=== PATIENT | male | born 1965 | race Caucasian/White ===

== ENCOUNTER 2021-05-21 11:25 | Day surgery (SDC) | payer BC ==
[2021-05-20 12:54] VITALS: BMI 22.9
[2021-05-21] MEDS ORDERED: Acetaminophen 500 MG TAB ONE (11:40)
[2021-05-21] MEDS ORDERED: Ketorolac Tromethamine 30 MG/ML VIAL ONE (11:40)
[2021-05-21] MEDS ORDERED: Midazolam HCl 2 mg/2 ml Vial ONE (13:35)
[2021-05-21] MEDS ORDERED: Fentanyl 100 MCG/2 ML VIAL ONE (13:35)
[2021-05-21] MEDS ORDERED: Bupivacaine 0.25% HCL 30 ML VIAL ONE (13:39)
[2021-05-21] MEDS ORDERED: Lidocaine 2% Jelly 5 ML TUBE ONE (13:39)
[2021-05-21] MEDS ORDERED: EPINEPHrine 1 MG/ML AMP ONE (13:39)
[2021-05-21] MEDS ORDERED: Glycopyrrolate 0.2 MG/ML 5 ML SYRINGE ONE (14:00)
[2021-05-21] MEDS ORDERED: Dexamethasone 20 MG/5 ML VIAL ONE (14:00)
[2021-05-21] MEDS ORDERED: PROPOFOL 200 MG/20 ML VIAL ONE (14:00)
[2021-05-21] MEDS ORDERED: Rocuronium Bromide 10 MG/ML (10ML VIAL) ONE (14:00)
[2021-05-21] MEDS ORDERED: Ondansetron PF 4 MG/2 ML Vial ONE (14:00)
[2021-05-21] MEDS ORDERED: Lidocaine 1% PF 5 ML VIAL ONE (14:00)
== END 2021-05-21 17:08 | disposition home or self-care (01) ==
LOC: SDC 11:25
PROVIDERS: ATTEND Specialist
PROC: 06LY0ZC Occlusion of Hemorrhoidal Plexus, Open Approach (ICD-10-PCS; principal; 2021-05-21)
DX: K64.8 Other hemorrhoids (principal); K62.4 Stenosis of anus and rectum; E78.5 Hyperlipidemia, unspecified; F17.200 Nicotine dependence, unspecified, uncomplicated; Z98.890 Other specified postprocedural states
CPT/HCPCS: J0171; J0690; J1100; J1885; J2250; J2405; J2704; J3010; S0020

== ENCOUNTER 2023-08-24 09:50 | Outpatient (CLI) | payer BC ==
[2023-08-24 11:11] LABS: #Eosinphils 0.1 10x3/uL (0.0-0.5); #Monocytes 0.3 10x3/uL (0.0-1.1); #Neutrophils 2.3 10x3/uL (1.5-8.4); %Basophils 0.5 % (0.0-2.0); %Eosinophils 1.5 % (0.0-6.0); %Lymphocytes 30.6 % (18.0-47.0); %Monocytes 7.7 % (0.0-10.0); %Neutrophils 59.4 % (40.0-75.0); Hematocrit 44.6 % (38.8-50.0); Mean Corpuscular HGB CONC 31.4 g/dL (32.0-36.0); Mean Corpuscular Hemoglobin 26.6 pg (27.0-33.0); Mean Corpuscular Volume 84.8 fl (81.2-95.1); Platelet Count 188 10x3/uL (150-450); RBC Distribution Width 12.8 % (11.5-14.5); Red Blood Cell (RBC) Count 5.26 10x6/uL (4.32-5.72); White Blood Cell (WBC) Count 3.9 10x3/uL (3.5-10.5)
[2023-08-24 11:23] LABS: PTT 28.5 sec (22.0-33.0); Prothrombin Time 10.3 sec (9.5-12.1)
[2023-08-24 11:33] LABS: ALT (SGPT) 10 U/L (8-55); AST (SGOT) 24 U/L (5-34); Albumin 4.2 g/dL (3.5-5.0); Alkaline Phosphatase 81 U/L (40-110); Anion Gap 12 mmol/L (10-20); BUN (Urea Nitrogen) 10 mg/dL (8.4-25.7); Bilirubin, Direct 0.1 mg/dL (0.1-0.3); Bilirubin, Total 0.3 mg/dL (0.2-1.2); Calc. Creatinine Clearance 0 mL/min (70-130); Calcium 9.2 mg/dL (7.8-10.44); Carbon Dioxide 28 mmol/L (22-29); Chloride 106 mmol/L (98-107); Estimated GFR 101; Globulin 2.5 g/dL (2.4-3.5); Glucose 93 mg/dL (70-105); Potassium 4.6 mmol/L (3.5-5.1); Protein, Total 6.7 g/dL (6.0-8.3); Sodium 141 mmol/L (136-145)
== END 2023-08-24 09:51 | disposition home or self-care (01) ==
LOC: LABBT 09:50
PROVIDERS: ATTEND Internal Medicine Cardiovascular Disease
DX: Z01.818 Encounter for other preprocedural examination (principal)
CPT/HCPCS: 80053; 80076; 85025; 85610; 85730; 93005; 93010

== ENCOUNTER → 2023-08-26 | Day surgery (SDC) | payer BC ==
[2023-08-24 10:31] VITALS: BMI 21.5
[~2023-08-26] MED LIST: Heparin 10,000 UNITS/ 10 ML VIAL ONE; Lidocaine 1% (PF) 30 ML VIAL ONE; Midazolam HCl 2 mg/2 ml Vial ONE; Nitroglycerin 50 MG/250 ML BOT 250 ML ONE; Verapamil 5 MG/2 ML VIAL ONE; fentaNYL 50 mcg/mL 1 mL Vial ONE
[2023-08-26 07:07] LABS: Cardiac Risk 5.7 (Less than 4.5)
== END ==
LOC: CCL 06:11
PROVIDERS: ATTEND Internal Medicine Cardiovascular Disease
PROC: 4A023N7 Measurement of Cardiac Sampling and Pressure, Left Heart, Percutaneous Approach (ICD-10-PCS; principal; 2023-08-26)
DX: R07.9 Chest pain, unspecified (principal); R01.1 Cardiac murmur, unspecified; I35.0 Nonrheumatic aortic (valve) stenosis
CPT/HCPCS: 36415; 80061; 93454; 99152; C1769; J1644; J2001; J2250; J3010

== ENCOUNTER 2023-09-30 09:15 | Outpatient (CLI) | payer BC | END 2023-09-30 09:16 | disposition home or self-care (01) | LOC: LABBT 09:15 | PROVIDERS: ATTEND Thoracic Surgery (Cardiothoracic Vascular Surgery) | DX: Z01.818 Encounter for other preprocedural examination (principal); I35.0 Nonrheumatic aortic (valve) stenosis | CPT/HCPCS: 71046; 93005; 93010 ==

== ENCOUNTER 2023-09-30 09:30 | Inpatient (IN) | payer BC ==
[2023-09-30 10:48] LABS: Hematocrit 43.5 % (38.8-50.0); Hemoglobin 14.4 g/dL (13.5-17.5); Mean Corpuscular HGB CONC 33.1 g/dL (32.0-36.0); Mean Corpuscular Hemoglobin 27.5 pg (27.0-33.0); Mean Platelet Volume 10.3 fl (7.4-10.4); Platelet Count 213 10x3/uL (150-450); RBC Distribution Width 12.9 % (11.5-14.5); Red Blood Cell (RBC) Count 5.24 10x6/uL (4.32-5.72); White Blood Cell (WBC) Count 4.9 10x3/uL (3.5-10.5)
[2023-09-30 11:36] LABS: Anion Gap 14 mmol/L (10-20); BUN (Urea Nitrogen) 9 mg/dL (8.4-25.7); Calc. Creatinine Clearance 0 mL/min (70-130); Calcium 9.5 mg/dL (7.8-10.44); Carbon Dioxide 25 mmol/L (22-29); Chloride 105 mmol/L (98-107); Estimated GFR 102; Glucose 96 mg/dL (70-105); Sodium 140 mmol/L (136-145)
[2023-10-03] MEDS ORDERED: Dexamethasone 4 mg/ml Vial ONE (06:36)
[2023-10-03] MEDS ORDERED: EPINEPHrine 1 MG/ML VIAL ONE (06:36)
[2023-10-03] MEDS ORDERED: Bupivacaine PF 0.5% 30 ML VIAL ONE (06:37)
[2023-10-03] MEDS ORDERED: Albumin 5% 500 ML ONE (06:37)
[2023-10-03] MEDS ORDERED: Vecuronium 10 MG VIAL ONE ×3 (06:58→08:03)
[2023-10-03] MEDS ORDERED: Norepinephrine 4 MG/4 ML VIAL ONE (06:58)
[2023-10-03] MEDS ORDERED: PROPOFOL 20 ML ONE (06:58)
[2023-10-03] MEDS ORDERED: fentaNYL PF 100 MCG/2 ML SYRINGE ONE (06:58)
[2023-10-03] MEDS ORDERED: Midazolam HCl 2 mg/2 ml Vial ONE (06:59)
[2023-10-03] MEDS ORDERED: Glycopyrrolate 0.2 MG/ML 5 ML SYRINGE ONE ×3 (07:00→10:50)
[2023-10-03] MEDS ORDERED: Ondansetron PF 4 MG/2 ML Vial ONE ×2 (07:00→08:03)
[2023-10-03] MEDS ORDERED: Lidocaine 2% PF 5 ML VIAL ONE (07:00)
[2023-10-03] MEDS ORDERED: ePHEDrine Sulfate 50 MG/10 ML VIAL ONE (07:14)
[2023-10-03] MEDS ORDERED: CEFAZOLIN 2 GM VIAL ONE (07:51)
[2023-10-03] MEDS ORDERED: Sodium Chloride 0.9% 100 ML ONE (07:51)
[2023-10-03] MEDS ORDERED: Heparin 10,000 UNITS/1 ML VIAL 30,000 UNITS in Sodium Chloride 0.9% 1,000 ML FS SCH (08:00)
[2023-10-03] MEDS ORDERED: Protamine Sulfate 250 MG/25 ML VIAL ONE (08:03)
[2023-10-03] MEDS ORDERED: NEOSTIGMINE 3 MG/3 ML SYR 3 MG/3 ML SYRINGE ONE ×2 (08:03→10:50)
[2023-10-03] MEDS ORDERED: Dexamethasone 20 MG/5 ML VIAL ONE ×2 (08:03→08:58)
[2023-10-03] MEDS ORDERED: Lidocaine 2% PF 100 mg/5 ml Syringe ONE (08:03)
[2023-10-03] MEDS ORDERED: Magnesium 5 GM/10 ML VIAL ONE (08:03)
[2023-10-03] MEDS ORDERED: Mannitol 12.5 GM/50 ML ONE (08:03)
[2023-10-03] MEDS ORDERED: Heparin 30,000 units/30 ml VIAL ONE (08:03)
[2023-10-03] MEDS ORDERED: Aminocaproic Acid 5 GM/20 ML VIAL ONE (08:03)
[2023-10-03] MEDS ORDERED: Potassium Chloride 60 MEQ/30 ML VIAL ONE (08:03)
[2023-10-03] MEDS ORDERED: Lidocaine 1% PF 5 ML VIAL ONE (08:03)
[2023-10-03] MEDS ORDERED: Thrombin 5000 UNITS/5 ML VIAL ONE (08:03)
[2023-10-03] MEDS ORDERED: Calcium Chloride 1 GM/10 ML Abboject SYRINGE ONE (08:03)
[2023-10-03] MEDS ORDERED: Vancomycin 1 GM VIAL ONE ×2 (08:03→08:27)
[2023-10-03] MEDS ORDERED: Esmolol 100 MG/10 ML VIAL ONE (08:03)
[2023-10-03] MEDS ORDERED: PHENYLEPHRINE-NS 100 MCG/ML 10 ML SYRINGE ONE (08:03)
[2023-10-03] MEDS ORDERED: Sodium Bicarb 50 MEQ/50 ML VIAL ONE (08:03)
[2023-10-03] MEDS ORDERED: Vancomycin HCl 500 MG VIAL ONE (08:27)
[2023-10-03] MEDS ORDERED: Rocuronium Bromide 10 MG/ML (10ML VIAL) ONE (08:56)
[2023-10-03] MEDS ORDERED: Insulin Regular 300 UNITS/3 ML VIAL ONE ×2 (09:57→09:59)
[2023-10-03] MEDS ORDERED: Ketorolac Tromethamine 30 MG/ML VIAL ONE (10:59)
[2023-10-03] MEDS ORDERED: Bisacodyl 10 MG SUPP PR PRN (11:12)
[2023-10-03] MEDS ORDERED: MANGAN PO PRN (11:12)
[2023-10-03] MEDS ORDERED: hydrALAZINE 20 MG/ML VIAL SLOW IVP PRN (11:12)
[2023-10-03] MEDS ORDERED: Bisacodyl 5 MG TAB PO PRN (11:12)
[2023-10-03] MEDS ORDERED: Morphine 2 MG/ML VIAL SLOW IVP PRN (11:12)
[2023-10-03] MEDS ORDERED: Hetastarch 6% 500 ML 500 ML IVPB PRN (11:12)
[2023-10-03] MEDS ORDERED: Mag-Al 1200 mg/1200 mg/30 ML UDCUP PO PRN (11:12)
[2023-10-03] MEDS ORDERED: Ipratropium/Albuterol 3 ML NEB NEB PRN (11:12)
[2023-10-03] MEDS ORDERED: CALCIUM PO PRN (11:12)
[2023-10-03] MEDS ORDERED: COPPER PO PRN (11:12)
[2023-10-03] MEDS ORDERED: NOREPINEPHRINE 8 MG/250 ML-D5W 250 ML IVPB PRN (11:12)
[2023-10-03] MEDS ORDERED: Ondansetron PF 4 MG/2 ML Vial IVP PRN (11:12)
[2023-10-03] MEDS ORDERED: [UNRECOGNIZED DRUG - OTHER] PO PRN (11:12)
[2023-10-03] MEDS ORDERED: D3 PO PRN (11:12)
[2023-10-03] MEDS ORDERED: ZINC PO PRN (11:12)
[2023-10-03] MEDS ORDERED: fentaNYL 50 mcg/mL 1 mL Vial SLOW IVP PRN (11:12)
[2023-10-03] MEDS ORDERED: Guaifenesin DM 100-10/5 ML UDCUP PO PRN (11:12)
[2023-10-03] MEDS ORDERED: Potassium Chloride 20 MEQ/100 ML PREMIX BAG IVPB PRN (11:12)
[2023-10-03] MEDS ORDERED: Nitroglycerin 50 MG/250 ML BOT 250 ML IVPB PRN (11:12)
[2023-10-03] MEDS ORDERED: Acetaminophen 325 MG TAB PO PRN (11:12)
[2023-10-03] MEDS ORDERED: D5 1/2 NS w/20 mEq KCL 1,000 ML IV SCH (11:15)
[2023-10-03] MEDS ORDERED: [UNRECOGNIZED DRUG - OTHER] PO PRN (11:43)
[2023-10-03 11:45] VITALS: BMI 23.3
[2023-10-03] MEDS ORDERED: Glucagon 1 MG/ML KIT SC PRN (11:45)
[2023-10-03] MEDS ORDERED: Dextrose 50% Abboject 50 ML SYRINGE SLOW IVP PRN (11:45)
[2023-10-03] MEDS ORDERED: HUMULIN R 100 UNITS in Sodium Chloride 0.9% 100 ML IVPB SCH (11:45)
[2023-10-03] MEDS ORDERED: Insulin Regular 300 UNITS/3 ML VIAL SC PRN (11:45)
[2023-10-03] MEDS ORDERED: Dextrose 5% in Water 1,000 ML IV PRN (11:45)
[2023-10-03] MEDS: Ketorolac Tromethamine 30 MG/ML VIAL IVP SCH ×3 (11:51→23:49)
[2023-10-03 11:55] LABS: #Monocytes 0.2 thou/uL (0.11-0.59); #Neutrophils 8.3 thou/uL (1.40-6.50); %Basophils 0.2 % (0.0-1.0); %Eosinophils 0.4 % (0.0-10.0); %Monocytes 2.4 % (0.0-10.0); %Neutrophils 86.4 % (42.0-75.0); Hematocrit 37.5 % (42.0-52.0); Mean Corpuscular Hemoglobin 27.1 pg (27.0-31.0); Mean Corpuscular Volume 84.8 fl (78.0-98.0); Mean Platelet Volume 10.3 fL (7.4-10.4); Platelet Count 125 10x3/uL (130-400); RBC Distribution Width 12.9 % (11.5-14.5); Red Blood Cell (RBC) Count 4.42 mill/uL (4.70-6.10); White Blood Cell (WBC) Count 9.6 10x3/uL (4.8-10.8)
[2023-10-03 12:04] LABS: INR-International Normal Ratio 1.4; PTT 28.3 sec (22.9-36.1); Prothrombin Time 17.2 sec (12.0-14.7)
[2023-10-03 12:15] LABS: Anion Gap 11 mmol/L (10-20); BUN (Urea Nitrogen) 9 mg/dL (8.4-25.7); Calc. Creatinine Clearance 103 mL/min (70-130); Calcium 7.9 mg/dL (7.8-10.44); Carbon Dioxide 23 mmol/L (22-29); Chloride 113 mmol/L (98-107); Estimated GFR 104; Glucose 117 mg/dL (70-105); Potassium 3.7 mmol/L (3.5-5.1); Sodium 143 mmol/L (136-145)
[2023-10-03] MEDS: CEFAZOLIN 2 GM in Sodium Chloride 0.9% 100 ML IVPB SCH ×2 (16:35→23:49)
[2023-10-03 18:07] LABS: Hematocrit 37.1 % (42.0-52.0); Hemoglobin 12.1 g/dL (14.0-18.0)
[2023-10-03] MEDS ORDERED: traMADol HCl 50 MG TAB PO PRN (18:58)
[2023-10-03 19:03] LABS: Potassium 4.5 mmol/L (3.5-5.1)
[2023-10-03] MEDS: traMADol HCl 50 MG TAB PO PRN (19:35)
[2023-10-03] MEDS: fentaNYL 50 mcg/mL 1 mL Vial SLOW IVP PRN (20:43)
[2023-10-03] MEDS: Vancomycin (BATCH) 1.5 GM in Premix 1 BAG IVPB SCH (20:43)
[2023-10-03] MEDS: Rosuvastatin 10 MG TAB PO SCH (20:45)
[2023-10-03] MEDS: Famotidine/PF 20 mg/2ml Vial SLOW IVP SCH (20:45)
[2023-10-03] MEDS ORDERED: Vancomycin 1.5 GM in Sodium Chloride 0.9% 250 ML 300 ML IVPB SCH (21:00)
[2023-10-04] MEDS: fentaNYL 50 mcg/mL 1 mL Vial SLOW IVP PRN ×2 (00:05→16:38)
[2023-10-04 05:12] LABS: #Monocytes 0.7 thou/uL (0.11-0.59); #Neutrophils 8.6 thou/uL (1.40-6.50); %Basophils 0.2 % (0.0-1.0); %Lymphocytes 5.4 % (21.0-51.0); %Monocytes 7.2 % (0.0-10.0); %Neutrophils 86.8 % (42.0-75.0); Hematocrit 36.8 % (42.0-52.0); Mean Corpuscular HGB CONC 32.6 g/dL (32.0-36.0); Mean Corpuscular Hemoglobin 27.3 pg (27.0-31.0); Mean Corpuscular Volume 83.6 fl (78.0-98.0); Mean Platelet Volume 11.2 fL (7.4-10.4); Platelet Count 170 10x3/uL (130-400); RBC Distribution Width 13.2 % (11.5-14.5); White Blood Cell (WBC) Count 9.9 10x3/uL (4.8-10.8)
[2023-10-04 05:40] LABS: Anion Gap 11 mmol/L (10-20); BUN (Urea Nitrogen) 10 mg/dL (8.4-25.7); Calc. Creatinine Clearance 107 mL/min (70-130); Calcium 8.3 mg/dL (7.8-10.44); Carbon Dioxide 24 mmol/L (22-29); Chloride 107 mmol/L (98-107); Estimated GFR 105; Glucose 124 mg/dL (70-105); Potassium 4.3 mmol/L (3.5-5.1); Sodium 138 mmol/L (136-145)
[2023-10-04] MEDS: Ketorolac Tromethamine 30 MG/ML VIAL IVP SCH ×3 (05:59→17:13)
[2023-10-04] MEDS: CEFAZOLIN 2 GM in Sodium Chloride 0.9% 100 ML IVPB SCH (07:33)
[2023-10-04] MEDS: Vancomycin (BATCH) 1.5 GM in Premix 1 BAG IVPB SCH (08:34)
[2023-10-04] MEDS: Aspirin 325 MG TAB PO SCH (08:34)
[2023-10-04] MEDS: Famotidine/PF 20 mg/2ml Vial SLOW IVP SCH (08:34)
[2023-10-04] MEDS ORDERED: Mag-Al 1200 mg/1200 mg/30 ML UDCUP PO PRN (10:26)
[2023-10-04] MEDS ORDERED: Mineral Oil ENEMA PR PRN (10:26)
[2023-10-04] MEDS ORDERED: Nitroglycerin 0.4 MG TAB (25 Tab Bottle) SL PRN (10:26)
[2023-10-04] MEDS ORDERED: Artificial Tear Sol 15 ML BOT EA EYE PRN (10:26)
[2023-10-04] MEDS ORDERED: diphenhydrAMINE 25 MG CAP PO PRN (10:26)
[2023-10-04] MEDS ORDERED: Guaifenesin DM 100-10/5 ML UDCUP PO PRN (10:26)
[2023-10-04] MEDS ORDERED: Bisacodyl 10 MG SUPP PR PRN (10:26)
[2023-10-04] MEDS ORDERED: Bisacodyl 5 MG TAB PO PRN (10:26)
[2023-10-04] MEDS ORDERED: Zolpidem Tartrate 5 MG TAB PO PRN (10:26)
[2023-10-04] MEDS: traMADol HCl 50 MG TAB PO PRN (11:23)
[2023-10-04] MEDS ORDERED: Insulin Glargine 30 UNITS/0.3 ML VIAL SC PRN (11:42)
[2023-10-04] MEDS: Rosuvastatin 10 MG TAB PO SCH (21:01)
[2023-10-05] MEDS: Ketorolac Tromethamine 30 MG/ML VIAL IVP SCH ×4 (00:48→18:00)
[2023-10-05] MEDS: Aspirin 325 MG TAB PO SCH (09:26)
[2023-10-05] MEDS: Rosuvastatin 10 MG TAB PO SCH (20:02)
[2023-10-06] MEDS: Ketorolac Tromethamine 30 MG/ML VIAL IVP SCH ×3 (01:27→12:30)
[2023-10-06] MEDS: Aspirin 325 MG TAB PO SCH (09:37)
[2023-10-06 11:03] LABS: #Monocytes 0.6 thou/uL (0.11-0.59); #Neutrophils 9.9 thou/uL (1.40-6.50); %Basophils 0.2 % (0.0-1.0); %Lymphocytes 6.3 % (21.0-51.0); %Monocytes 4.9 % (0.0-10.0); %Neutrophils 88.4 % (42.0-75.0); Hematocrit 36.5 % (42.0-52.0); Hemoglobin 11.9 g/dL (14.0-18.0); Mean Corpuscular HGB CONC 32.6 g/dL (32.0-36.0); Mean Corpuscular Hemoglobin 27.2 pg (27.0-31.0); Mean Corpuscular Volume 83.3 fl (78.0-98.0); Platelet Count 211 10x3/uL (130-400); RBC Distribution Width 13.2 % (11.5-14.5); Red Blood Cell (RBC) Count 4.38 mill/uL (4.70-6.10); White Blood Cell (WBC) Count 11.1 10x3/uL (4.8-10.8)
[2023-10-06 12:47] LABS: ALT (SGPT) 10 U/L (8-55); AST (SGOT) 34 U/L (5-34); Albumin 3.3 g/dL (3.5-5.0); Alkaline Phosphatase 62 U/L (40-110); Anion Gap 16 mmol/L (10-20); BUN (Urea Nitrogen) 15 mg/dL (8.4-25.7); Bilirubin, Total 0.4 mg/dL (0.2-1.2); Calc. Creatinine Clearance 87 mL/min (70-130); Calcium 8.7 mg/dL (7.8-10.44); Carbon Dioxide 22 mmol/L (22-29); Chloride 101 mmol/L (98-107); Estimated GFR 93; Globulin 3.4 g/dL (2.4-3.5); Glucose 189 mg/dL (70-105); Potassium 4.2 mmol/L (3.5-5.1); Protein, Total 6.7 g/dL (6.0-8.3); Sodium 135 mmol/L (136-145)
[2023-10-06] MEDS ORDERED: Furosemide 20 MG/2 ML VIAL SLOW IVP SCH (18:15)
[2023-10-06] MEDS: Rosuvastatin 10 MG TAB PO SCH (21:40)
[2023-10-07 08:39] VITALS: BP 99/64; TEMP 97.9
[2023-10-07] MEDS: Aspirin 325 MG TAB PO SCH (09:04)
== END 2023-10-07 11:40 | disposition home or self-care (01) | DRG 220 ==
LOC: SURG A 10-03 06:18 → CCU 10-03 11:41 → 2NO 10-04 17:38
PROVIDERS: ADMIT Thoracic Surgery (Cardiothoracic Vascular Surgery); ATTEND Thoracic Surgery (Cardiothoracic Vascular Surgery)
PROC: 02RF08N Replacement of Aortic Valve with Zooplastic Tissue, using Rapid Deployment Technique, Open Approach (ICD-10-PCS; principal; 2023-10-03)
PROC: 5A1221Z Performance of Cardiac Output, Continuous (ICD-10-PCS; 2023-10-03)
PROC: 02L70CK Occlusion of Left Atrial Appendage with Extraluminal Device, Open Approach (ICD-10-PCS; 2023-10-03)
DX: I35.0 Nonrheumatic aortic (valve) stenosis (principal); D68.51 Activated protein C resistance; J90 Pleural effusion, not elsewhere classified; I25.10 Atherosclerotic heart disease of native coronary artery without angina pectoris
CPT/HCPCS: 36415; 36416; 71045; 71046; 80048; 80053; 83880; 85025; 85027; 85610; 85730; 86850; 86900; 86901; 93005; 93010; 93798; 97139; A4311; C1713; C1751; C1776; C1889; C2615; J0171; J1100; J1642; J1644; J1815; J1885; J1940; J2001; J2150; J2250; J2405; J2704; J2720; J3010; J3370; J3475; J3480; J3490; P9045; S0017; S0020; S0028